=== PATIENT | female | born 1985 | race Caucasian/White ===

== ENCOUNTER 2018-02-12 19:05 | Inpatient (IN) | payer OTHER ==
[~2018-02-12] VITALS: Ht 149.9 cm; Wt 83.0 kg
[~2018-02-12 19:05] MED LIST: CEP250 PO; DOCU-416 PO; ETON68IM SQ; IBU800 PO; IBUP600T22 PO; LETPT PO; LOR5/325 PO; NORG1TAB94 PO; OXYC-865 PO; TAMS0.4C25 PO
[2018-02-12] MEDS ORDERED: APAP/HYDROCODONE 325/5 TAB PO PRN (21:45)
[2018-02-12] MEDS ORDERED: ACETAMINOPHEN 500 MG TAB PO ONE (21:45)
[2018-02-12] MEDS ORDERED: OXYTOCIN 30 UNIT/D5LR 500 ML 500 ML IV PRN (23:27)
[2018-02-12] MEDS: LR(*) 1000 ML BAG 1,000 ML IV SCH (23:27)
[2018-02-12] MEDS ORDERED: ceFAZolin(*) 2GM/D5W 50ML 50 ML IVPB PRN (23:27)
[2018-02-12] MEDS ORDERED: FAMOTIDINE(*) 20MG/50ML PREMIX 50 ML IVPB PRN (23:27)
[2018-02-12] MEDS ORDERED: fentaNYL CITR 100 MCG/2 ML AMP IVP PRN (23:30)
[2018-02-12] MEDS ORDERED: FENTANYL/ROPIVACAINE 100 ML BAG EPI PRN (23:30)
[2018-02-12] MEDS ORDERED: LIDOCAINE/SOD BICARB 8.4% SYR SC PRN (23:30)
[2018-02-12] MEDS ORDERED: PENICILLIN G 5 MILLUN/100 ML 100 ML IVPB ONE (23:30)
[2018-02-12] MEDS ORDERED: fentaNYL CITR 100 MCG/2 ML AMP IT PRN (23:30)
[2018-02-12] MEDS ORDERED: ONDANSETRON 4 MG/2 ML VIAL IVP PRN (23:30)
[2018-02-12] MEDS ORDERED: METOCLOPRAMIDE 10 MG/2 ML SDV IVP PRN (23:30)
[2018-02-12] MEDS ORDERED: LIDOCAINE 1% LOCAL 300 MG/30ML INJ PRN (23:30)
[2018-02-12] MEDS ORDERED: BUPIVACAINE 0.25% MPF INJ EPI PRN (23:30)
[2018-02-12] MEDS ORDERED: LIDOCAINE/PF 2% 200MG/10ML AMP 200 MG/10 ML AMPUL EPI PRN (23:30)
[2018-02-12] MEDS ORDERED: EPIDURAL KEYS XX PRN (23:30)
[2018-02-12] MEDS ORDERED: LIDO/EPI 2% MPF 1:200,000 20ML EPI PRN (23:30)
--- NOTE | 2018-02-13 | History & Physical ---
History of Present Illness Age of Patient: 32 : 5 Para or TPAL: 2 EDC per LMP: Feb 26, 2018 EDC per U/S: Feb 26, 2018 Estimated Gestational Age: 38.0 Chief Complaint Painful contractions. History of Present Illness Pt is a 32 y/o @ 38-0/7 wga who presents to L&D with a chief complaint of painful contractions. Reports contractions started around dinner time and have progressively worsened. Pt reports that contractions are every 2-4 minutes and getting stronger. Pt denies any vaginal bleeding. Good movement. History Patient's Blood Type: O Positive Rubella Status: Immune Group B Strep Screen: Positive Obstetrical History: X 2 TOP X2 Past Medical History: Appendectomy 2005 Kidney stones 2009 Stacy teeth 2015 Allergies: Coded Allergies: No Known Drug Allergies (Verified , 12/26/15) Social History: +Tobacco use, neg rec drugs. ETOH until she found out she was . Family History: FH: cancer FH: diabetes mellitus MOTHER FH: hypertension Review of Systems All Systems Reviewed/Normal: Yes, Except as Noted Constitutional: No Fever, No Weight Loss, No Weight Gain, No Chills, No Night Sweats, No Other Neurological: No Syncope, No Confusion, No Weakness, No Dizziness, No Slurred Speech, No Other Eyes: No Vision Change, No Loss of Vision, No Photophobia, No Other ENT: No Hearing Loss, No Sinus Congestion, No Sore Throat, No Ear Ache, No Tinnitus, No Other Cardiovascular: No Chest Pain, No Palpitations, No Orthostatic Hypotension, No Other Respiratory: No Shortness of Breath, No Cough, No Wheezing, No Other Gastrointestinal: No Nausea, No Vomiting, No Diarrhea, No Dysphagia, No Constipation, No Early Satiety, No Hematemesis, No Hematochezia, No Melena, No Abdominal Pain, No Other Genitourinary: No Dysuria, No Hematuria, No Urinary Incontinence, No Other Musculoskeletal: No Pain, No Sprain, No Strain, No Impaired Mobility, No Other Psychiatric: No Depression, No Anxiety, No Other Exam General Exam General Apperance: Alert/Awake/No Acute Distress Neuro: No Gross deficits Eyes: Normal Extraocular Movement & Vison, PERRLA ENT: Normal Cardiovascular: Regular Rate and Rhythm Respiratory: No Respiratory Distress, Clear to Auscultation Abdomen: Soft, Non-Tender, Non-Distended, Gravid - Non-Tender : Normal Musculoskeletal: No Weakness/Pain Extremities: No Cyanosis,Clubbing or Edema Integumentary: Skin Intact without Lesions or Rash Psychological: Alert & Oriented X3, Appropriate Mood & Affect Cervical Dialation: 5 Cervical Effacement (%): 80 Cervical Consistency: Soft Cervical Position: Anterior Station: -2 Presentation: Vertex Uterine Contractions(Q min): 3 Uterine Contraction Strength: Moderate UC Resting Tone: Soft Fetus Feeling Movement?: Yes Heart Tones: 125 Heart Tone Variabilty: Moderate FHT Accelerations: 15X15 FHT Decelerations: None FHT Category: I Medical Decision Making Pre-Admit Course Medical Record Review: Yes VTE Prophylasis: Adult Deep Vein Thrombosis/Pulmonary: No 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 (2) 38 weeks gestation of (3) Active labor at term Assessment & Plan: Pt changed from 3 to 5 cm. Will admit patient. Start PCN for GBS prophylaxis. Once PCN has been infused will plan for amniotomy. Pt to get epidural. Expect . GI GRIFFITH DO Feb 13, 2018 00:00
[2018-02-13 00:15] LABS: PLATELET COUNT, AUTOMATED 127 K/uL (150-450)
[2018-02-13] MEDS ORDERED: CALCIUM CARBONATE 500 MG CHEW PO PRN (01:10)
[2018-02-13] MEDS: PENICILLIN G 2.5 MILLUN/100 ML 100 ML IVPB SCH ×2 (04:27→11:00)
[2018-02-13] MEDS ORDERED: OXYTOCIN 30 UNIT/D5LR 500 ML 500 ML IV PRN (06:10)
--- NOTE | 2018-02-13 06:12 | Labor Progress Note ---
Labor Subjective Progress Notes Subjective Not feeling much of her contractions. Still having regular contractions just not as strong. 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 No longer juve. S/p Rupture of membranes with clear amniotic fluid. Pt to continue to progress. Expect . Can augment with oxytocin if hypotonic contractions. GI GRIFFITH DO Feb 13, 2018 06:12
[2018-02-13] MEDS ORDERED: EPINEPHrine INJ 1 MG/10 ML SYR ONE (07:47)
--- NOTE | 2018-02-13 07:57 | Anesthesia OB Pre-Anes Eval ---
History of Present Illness Anesthesia Start Date: Feb 13, 2018 Anesthesia Start Time: 07:12 OB Anesthesia Diagnosis: spontaneous labor Current Complication: obesity Result Diagram: 02/12/18 0000 Weight (Pounds): 173 Past Medical History Medical History: obesity Surgical History: appendectomy, other (kidney stones, wisdom teeth, 2 labor epidurals) Previous Anesthesia: general, epidural Attended Childbirth Classes?: No Hx Anesthesia Reactions: No Hx Family Anesthesia Reaction: No Past Complications: obesity Allergies: Coded Allergies: No Known Drug Allergies (Verified , 12/26/15) Anesthesia OB ROS Neurological: No migraines/headaches, No seizures, No neuropathy, No other ENT: Denies Tooth caps, Denies Loose teeth, Denies Chipped teeth, Denies Dentures, Denies Bridges, Denies Retainers, Denies Veneers, Denies Implants, Denies Tongue ring, Denies Other Pulmonary: No asthma, No smoker (pks/day/yrs), No other Airway Class: ll Cardiovascular ROS: No edema, No arrhythmia, No other GI ROS: clear liquids ROS: No Herpes, No STD(s), No Liver Disease, No Renal Disease, No Other Endocrine ROS: No diabetes, No gestational diabetes, No thyroid disorder, No other Musculoskeletal ROS: No low back pain, No low back injury, No scoliosis, No other ASA Classification: 2 Assessment and Plan Anesthesia Plan: WAYNE PERRY CRNA Feb 13, 2018 07:57
--- NOTE | 2018-02-13 08:00 | Procedure Note ---
Anesthetic Placement Note Anesthesia Plan: LEB Permit for Anesthesia Signed: Yes Anesthesia Technique: Patient Sitting Anesthesia Prep: Chlorhexidine Interspace: L 4-5 Local Anesthetic: 1% Lidocaine, 25 Gauge Needle Amount Local - cc's: 5 Anesthesia Needle: 17g Touhy/Schliff Anesthesia Attempts: 1 Loss of Resistance: Normal Saline Depth of JONNA (cm): 6.5 Epidural Needle Placement: No CSF, No Blood, No Parasthesia Catheter Insertion (cm): 4 Catheter Type: Jean Baptiste - Spring Wound Epidural Dressing: Tegaderm, Tape Anesthesia Tray: Lot Number ([id number]), Expiration Date (01/07/2019), Reference Number ([id number]) Anesthesia Medications: Epidural Test Dose: 1.5 Lido/Epi (1:200,000), Dose - mL (5 mL incrementally), Time (0730), Negative Epidural Loading Dose: 0.2% Ropivicaine, With Fentanyl 2mcg/ml, Dose - ml (6), Time (0740) Epidural Infusion: 0.2% Ropivicaine, With Fentanyl 2mcg/ml, Start Time: (0740) Epidural Pump Setting: Bolus Dose - mL (5), Lockout - Minutes (20), Maintenance Rate - mL/hr (8), Maximum per Hour - mL (23) Complications: None Comment: 100 mcg Fentanyl via epidural catheter at 0734 WAYNE SALMERON CRNA Feb 13, 2018 08:00
--- NOTE | 2018-02-13 09:18 | Anesthesia Progress Note ---
Progress/Maintenance Anesthesia Note Date: Feb 13, 2018 Anesthesia Note Time: 09:15 Pain Intensity: 0 Pump: On Pump Rate (ML/HR): 4 (down from 6 mL/hr) Motor Level: Bending Knees-Bilateral Position: Left, Tilt WAYNE SALMERON CRNA Feb 13, 2018 09:18
[2018-02-13] MEDS: LR(*) 1000 ML BAG 1,000 ML IV SCH (09:27)
[2018-02-13] MEDS ORDERED: PENICILLIN G 2.5 MILLUN/100 ML 100 ML IVPB SCH (15:00)
--- NOTE | 2018-02-13 15:00 | OB Delivery Note ---
Delivery Note Vaginal Delivery Type: Spont. Vaginal Delivery Delivery Date: Feb 13, 2018 Delivery Time: 14:30 Estimated Gestational Age(wks): 38.1 Delivery Anesthesia: Epidural Sex: Male [place] Apgars: 1 Minute, 5 Minute Repair Needed: Labial (right labial repaired with 1 interrupted stitch, left labial no repaired) Estimated Blood Loss: 350 Notes: Pt is a 32yo G5 now P3 at 38 1/7 with an COMPA 02/26/18. Pt was admitted to the family care unit on 02/12/18 in labor juve every 2-3 minutes. Cervical exam on admission was 3/80/-2 and progressed to 5 with AROM was @ 0600 on 02/13/18 for a moderate amount of clear fluid. Pitocin augmentation was started as contractions spaced out. Pt was GBS positive and treated with 4 doses of PCN. FHR CAT I primarily throughout first stage. Pt utilized a ARTURO primarily for pain management. Pt was completely dilated on 1425 and pt began pushing with great maternal effort at that time. At 1430 pt had a NSVB of live male APGARS 8,9. The head delivered spontaneously in the OA position and restituted BLAS with no nuchal cord, but left compound hand. The anterior shoulder was delivered a traumatically and the posterior shoulder followed. Body delivered easily. Face was wiped with nose and bulb suction and then placed on the maternal abdomen. The infant was dried and stimulated and noted to have a spontaneous cry and movement of all extremities, so the cord was clamped X 2 by CNM after pulsations ceased and cut by patient's spouse. Mother was in SF position. At 1436 the p lacenta and membranes delivered spontaneous and intact with a 3 vessel cord after gentle downward traction. 30 units of Pitocin was placed in 500cc IV to firm the uterus and started immediately after placenta delivery. Upon inspection of the perineum a right labial laceration was observed and repaired with a 3-0 with one interrupted suture. a left labial laceration was also noted, but hemostatic. EBL was 350 with fundus firm with minimal bleeding. initiated within minutes after with great success. Mother and baby were stable when I left the room. "I personally examined the patient and there are no unintended foreign objects in the vagina. Mable Silverman CNM was present throughout the entire delivery as well as well as Екатерина Bennett CNM Oil Pipe Inspector Helper in Attendence: No Oil Pipe Inspector Helper in Attendence: MABLE Lewis CNM Feb 13, 2018 15:00
[2018-02-13] MEDS ORDERED: HYDROCORTISONE 2.5% CR 30GM TB PR PRN (15:25)
[2018-02-13] MEDS ORDERED: ACETAMINOPHEN 325 MG TAB PO PRN (15:25)
[2018-02-13] MEDS ORDERED: GLYCERIN/WITCH HAZEL LEAF 1 PK TP PRN (15:25)
[2018-02-13] MEDS ORDERED: APAP/HYDROCODONE 325/5 TAB PO PRN (15:25)
[2018-02-13] MEDS ORDERED: LANOLIN OINT 7 GM TUBE TP PRN (15:25)
[2018-02-13] MEDS ORDERED: BENZOCAINE 20% 60 ML BTL TP PRN (15:25)
[2018-02-13] MEDS ORDERED: MAGNESIUM HYDROXIDE* 30ML UDCP PO PRN (15:25)
[2018-02-13] MEDS: IBUPROFEN 800 MG TAB PO SCH (17:48)
[2018-02-13 19:20] VITALS: BP 123/59
[2018-02-13] MEDS: DOCUSATE CALCIUM 240 MG CAP PO SCH (21:30)
[2018-02-14] VITALS (11 sets, daily range): BP systolic 109–137; BP diastolic 55–75
[2018-02-14] MEDS: IBUPROFEN 800 MG TAB PO SCH ×3 (01:34→17:00)
[2018-02-14] MEDS ORDERED: PENICILLIN G 2.5 MILLUN/100 ML 100 ML IVPB SCH (07:00)
--- NOTE | 2018-02-14 08:24 | OB/GYN Progress Note ---
OB Subjective Progress Notes Subjective Doing well . Bleeding light and pain well controlled. Wants a BTL. GI: NEG Nausea : Voiding Well Pain: Mild OB Objective Physical Exam Vital Signs Date Time Temp Pulse Resp B/P (MAP) Pulse Ox O2 Delivery O2 Flow Rate FiO2 02/14/18 05:23 97.7 76 16 109/58 (75) Room Air 02/13/18 19:20 93 Intake and Output 02/14/18 07:00 Intake Total 800 ml Output Total 900 ml Balance -100 ml Intake Oral 800 ml Output Urine Total 900 ml # Voids 2 General Appearance: Alert/Awake/No Acute Distress Neurological: No Gross deficits Eyes: Normal Extraocular Movement & Vison, PERRLA Cardiovascular: Normal Rhythm & Peripheral Pulses, Regular Rate and Rhythm Respiratory: No Respiratory Distress, Clear to Auscultation Abdomen: Soft, Non-Tender, Non-Distended, Fundus Firm, Non-Tender Extremities: No Cyanosis,Clubbing or Edema Integumentary: Skin Intact without Lesions or Rash Psychological: Alert & Oriented X3, Appropriate Mood & Affect Result Diagram: 02/14/18 0647 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
[2018-02-14] MEDS: DOCUSATE CALCIUM 240 MG CAP PO SCH ×2 (08:53→21:30)
--- NOTE | 2018-02-14 09:38 | OB/GYN Progress Note ---
OB Subjective Progress Notes Subjective day #1. Reports normal vaginal bleeding. No issues with breast- feeding. Ambulatory with no difficulty. Voiding without any difficulty. Pain controlled with by mouth pain medications. GI: NEG Nausea, NEG Vomiting, NEG Flatus, NEG Bowel Movement : Voiding Well, Vaginal Bleeding Pain: Mild Neurological: No Headache, No Other Eyes: No Visual Disturbances OB Objective Physical Exam Vital Signs Date Time Temp Pulse Resp B/P (MAP) Pulse Ox O2 Delivery O2 Flow Rate FiO2 02/14/18 05:23 97.7 76 16 109/58 (75) Room Air 02/13/18 19:20 93 Intake and Output 02/14/18 07:00 Intake Total 800 ml Output Total 900 ml Balance -100 ml Intake Oral 800 ml Output Urine Total 900 ml # Voids 2 General Appearance: Alert/Awake/No Acute Distress Neurological: No Gross deficits Eyes: Normal Extraocular Movement & Vison, PERRLA Cardiovascular: Normal Rhythm & Peripheral Pulses, Regular Rate and Rhythm Respiratory: No Respiratory Distress, Clear to Auscultation Abdomen: Soft, Non-Tender, Non-Distended, Fundus Firm, Non-Tender Extremities: No Cyanosis,Clubbing or Edema Integumentary: Skin Intact without Lesions or Rash Psychological: Alert & Oriented X3, Appropriate Mood & Affect Result Diagram: 02/14/18 0647 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 Patient tolerating pain with by mouth pain medications. Patient desires to have tubal ligation because patient is a LP to be see patient I will defer to Dr. Chua for that decision. Patient is curre ntly nothing by mouth if deemed appropriate candidate for tubal ligation. Patient likely to remain in the hospital today as her will be monitored for possibly up to 48 hours secondary to GBS exposure patient did receive 4 doses of penicillin prior to delivery. (3) Active labor at term Status: Resolved GI GRIFFITH DO Feb 14, 2018 09:38
--- NOTE | 2018-02-14 09:57 | Anesthesia Progress Note ---
Progress/Maintenance Anesthesia Note Date: Feb 13, 2018 Anesthesia Note Time: 15:00 Pump: Off Assessment and Plan Anesthesia Stop Day: Feb 13, 2018 Anesthesia Stop Time: 14:30 WAYNE SALMERON CRNA Feb 14, 2018 09:57
--- NOTE | 2018-02-14 09:58 | Anesthesia Post Eval Note ---
Anesthesia Post Eval Note Vital Signs Date Time Temp Pulse Resp B/P (MAP) Pulse Ox O2 Delivery O2 Flow Rate FiO2 02/14/18 05:23 97.7 76 16 109/58 (75) Room Air 02/13/18 19:20 93 Pt able to participate in Eval: Yes Cardiovascular Status: Satisfactory Respiratory Status: Satisfactory Pain Managment: Satisfactory PO Nausea/Vomiting: Satisfactory Temperature Management: Satisfactory Mental Status: Satisfactory, Alert, Oriented X3 Post-Op Hydration Status: Satisfactory, Tolerating PO Well, Voiding w/o Difficulty Anesthesia Type: WAYNE PERRY CRNA Feb 14, 2018 09:58
[2018-02-14] MEDS ORDERED: METOCLOPRAMIDE 10 MG/2 ML SDV ONE ×2 (11:31→12:08)
[2018-02-14] MEDS ORDERED: LIDOCAINE MPF 1% 5 ML VIAL ONE (12:08)
[2018-02-14] MEDS ORDERED: ONDANSETRON 4 MG/2 ML VIAL ONE (12:08)
[2018-02-14] MEDS ORDERED: PROPOFOL EMUL(*) 10MG/ML 20 ML 20 ML ONE (12:08)
[2018-02-14] MEDS ORDERED: DEXAMETHASONE SOD 4 MG/ML VIAL ONE (12:09)
[2018-02-14] MEDS ORDERED: DLR(*) 1000 ML BAG 1,000 ML IV SCH (12:40)
[2018-02-14] MEDS ORDERED: ROPIVACAINE 0.2% 20 ML VIAL ONE (16:09)
[2018-02-14] MEDS ORDERED: fentaNYL CITR 100 MCG/2 ML AMP ONE ×2 (16:18→17:47)
[2018-02-14] MEDS ORDERED: SUGAMMADEX SOD 200 MG/2 ML SDV ONE (16:19)
[2018-02-14] MEDS ORDERED: NORMOSOL R SOLN(*) 1000 ML BAG 1,000 ML IV PRN (16:20)
[2018-02-14] MEDS ORDERED: MIDAZOLAM 2 MG/2 ML VIAL IVP PRN (16:20)
[2018-02-14] MEDS ORDERED: FAMOTIDINE 20 MG/50 ML PREMIX IVPB ONE (16:25)
[2018-02-14] MEDS ORDERED: cefOXitin/DEX(*) 2GM/50ML PREM 50 ML IVPB ONE (16:30)
[2018-02-14] MEDS ORDERED: ACETAMINOPHEN(*)1000 MG/100 ML 100 ML IVPB ONE (16:40)
--- NOTE | 2018-02-14 16:43 | NUR ---
[facility]. hall's request. given to him to admin back in OR. Not scanned into [employer] to avoid confusion.
[2018-02-14] MEDS ORDERED: ROCURONIUM BROM 10 MG/ML 10 ML ONE (16:50)
[2018-02-14] MEDS ORDERED: SUCCINYLCHOL CHL 100MG/5ML SYR IVP ONE (16:50)
--- NOTE | 2018-02-14 17:37 | Post Operative Note ---
Operative Note - LIBRARY ASSISTANT Operative Day Date: Feb 14, 2018 Time: 17:36 Physicians Surgeon: Hrashil Anesthesia: Gen Diagnosis Pre-Op Diagnosis: sterilization Post-Op Diagnosis: same Procedure Procedure(s): PPTL Specimen Removed:(Maybe N/A): tubal segments Complications: [id number] Fluids Fluids: 500 ml Estimated Blood Loss: minimal Dictated Date OP Note Dictated: Feb 14, 2018 Time OP Note Dictated: 17:37 Copies to: MARCO BEJARANO MD ; MARCO BEJARANO MD Feb 14, 2018 17:37
[2018-02-14] MEDS ORDERED: KETOROLAC 30 MG/ML VIAL ONE (17:47)
[2018-02-15 00:30] VITALS: BP 120/67
[2018-02-15] MEDS: IBUPROFEN 800 MG TAB PO SCH ×2 (01:40→08:48)
[2018-02-15 02:18] VITALS: BP 103/58
--- NOTE | 2018-02-15 03:02 | OPERATIVE REPORT 1 ---
EVENT DATE: February 14, 2018 SURGEON: Garrison Chua MD ANESTHESIOLOGIST: Jaycob Goodman MD ANESTHESIA: General LMA. PREOPERATIVE DIAGNOSIS 1. , status post normal spontaneous vaginal delivery yesterday. 2. Desired sterilization. POSTOPERATIVE DIAGNOSIS 1. , status post normal spontaneous vaginal delivery yesterday. 2. Desired sterilization. PROCEDURE PERFORMED tubal ligation via modified Grethel method. ESTIMATED BLOOD LOSS Minimal. FLUIDS IV crystalloid 500 mL. DESCRIPTION OF PROCEDURE The patient was brought to the operating room with a working IV and administered general LMA anesthesia in the dorsal supine position. She was then prepped and draped in the usual sterile fashion. The umbilicus was infiltrated with 0.2% Naropin and then grasped on the inferior portion with an Allis clamp. It was also grasped inferior to this same clamp, elevating the skin while a transverse linear incision was made beneath the umbilicus. This was performed all the way down to the rectus fascia, which was incised in a transverse fashion, and the peritoneum was entered sharply. Finger retractors were inserted to manipulate the abdominal wall while the left fallopian tube was swept forward with finger and grasped with a Aneesh clamp. It was followed out to the fimbriated end and then re-grasped in the isthmic portion. A knuckle of tube was created with a plain gut tie, followed by doubly ligating this knuckle of tube and excising a 2 cm segment of fallopian tube. This was hemostatic upon completion and was allowed to fall back into the abdomen. The same procedure was followed on the contralateral side, in likewise fashion ligating and excising a 2 cm segment of fallopian tube and also confirming this was tube on the right by following out to the fimbriated end. Upon completion, there were no visible complications. The rectus fascia and peritoneum were closed with an 0 Vicryl in a running nonlocking stitch. Subcuticular space was irrigated and blotted dry. space was closed with a 3-0 Vicryl in a running nonlocking stitch. The skin was repaired with a 4-0 Monocryl simple subdermal and covered with Dermabond skin adhesive. She tolerated the procedure well. Sponge, lap, needle, and instrument counts were all correct x3. She was taken to recovery in stable condition. [facility]ITALGary
[2018-02-15 07:26] VITALS: BP 125/74
--- NOTE | 2018-02-15 08:10 | OB/GYN Progress Note ---
OB Subjective Progress Notes Subjective Doing well. Little pain and bleeding light. GI: NEG Nausea : Voiding Well Pain: Mild OB Objective Physical Exam Vital Signs Date Time Temp Pulse Resp B/P (MAP) Pulse Ox O2 Delivery O2 Flow Rate FiO2 02/15/18 07:26 98.0 75 20 125/74 (91) Room Air 02/15/18 02:18 94 02/14/18 19:07 1.0 Intake and Output 02/15/18 07:00 Intake Total 2753 ml Balance 2753 ml Intake Oral 200 ml IV Total 2553 ml # Voids 2 # Bowel Movements 1 General Appearance: Alert/Awake/No Acute Distress Neurological: No Gross deficits Eyes: Normal Extraocular Movement & Vison, PERRLA Cardiovascular: Normal Rhythm & Peripheral Pulses, Regular Rate and Rhythm Respiratory: No Respiratory Distress, Clear to Auscultation Abdomen: Soft, Non-Tender, Non-Distended, Fundus Firm, Non-Tender Incision: Clean, Dry, Intact, Dermabond Extremities: No Cyanosis,Clubbing or Edema Integumentary: Skin Intact without Lesions or Rash Psychological: Alert & Oriented X3, Appropriate Mood & Affect Result Diagram: 02/14/18 0647 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 (2) Admission for sterilization Assessment & Plan: s/p PPTL. Call if issues. MARCO BEJARANO MD Feb 15, 2018 08:10
--- NOTE | 2018-02-15 08:12 | OB/GYN Discharge Summary ---
Discharge Summary Reason for Hosp/Final Diag: (1) care and examination immediately after delivery Hospital Course & Plan: Reviewed precautions and f/u at 6 weeks. (2) Admission for sterilization Hospital Course & Plan: s/p PPTL. Call if issues. Lates Vital Signs Vital Signs Date Time Temp Pulse Resp B/P (MAP) Pulse Ox O2 Delivery O2 Flow Rate FiO2 02/15/18 07:26 98.0 75 20 125/74 (91) Room Air 02/15/18 02:18 94 02/14/18 19:07 1.0 Weight (Pounds): 183 Result Diagram: 02/14/18 0647 Condition: Improved Discharge: Home, Self Care Follow up Referrals: CONTROL OFFICER - In 6 Weeks @ [facility] with MARCO CHUA MD Follow up with: Dr. Chua [phone] Follow up in: 6 wks PP or PO Discharge Diet: As Tolerates Discharge Activity: As Tolerates, No Heavy Lifting x 6 wks, No Heavy Lifting > 10lb Copies to: MARCO CHUA MD ; MARCO CHUA MD Feb 15, 2018 08:12
[2018-02-15] MEDS ORDERED: IBUP800T37 PO (08:14)
[2018-02-15] MEDS ORDERED: LOR5/325 PO (08:14)
[2018-02-15] MEDS: DOCUSATE CALCIUM 240 MG CAP PO SCH (08:48)
== END 2018-02-15 11:24 | disposition home or self-care (01) | DRG 798 ==
LOC: OB 19:05 → UNDOADMOB 19:05 → INTOOBSV 19:05 → OBSVTOIN 19:05
PROVIDERS: ADMIT Student in an Organized Health Care Education/Training Program; ATTEND Student in an Organized Health Care Education/Training Program
PROC: 10E0XZZ Delivery of Products of Conception, External Approach (ICD-10-PCS; principal; 2018-02-13)
PROC: 10907ZC Drainage of Amniotic Fluid, Therapeutic from Products of Conception, Via Natural or Artificial Opening (ICD-10-PCS; 2018-02-13)
PROC: 0HQ9XZZ Repair Perineum Skin, External Approach (ICD-10-PCS; 2018-02-13)
PROC: 0UB70ZZ Excision of Bilateral Fallopian Tubes, Open Approach (ICD-10-PCS; 2018-02-14)
DX: O99.824 Streptococcus B carrier state complicating childbirth (principal); Z37.0 Single live birth; O32.6XX0 Maternal care for compound presentation, not applicable or unspecified; O70.0 First degree perineal laceration during delivery; Z3A.38 38 weeks gestation of pregnancy; Z30.2 Encounter for sterilization
CPT/HCPCS: 36415; 85025; 85027; 86703; 86850; 86900; 86901; 88302; J0131; J0171; J0330; J0694; J1100; J1885; J2001; J2405; J2540; J2704; J2765; J2795; J3010; J3490; J7120